=== PATIENT | female | born 1960 | race Caucasian/White ===

== ENCOUNTER 2020-01-17 13:02 | Emergency (ER) | payer MEDICAID ==
[~2020-01-17] VITALS: Ht 162.6 cm; Wt 84.1 kg
--- NOTE | 2020-01-17 14:16 | NUR ---
PT PRESENTS TO ED WITH C/O COUGH, BODY ACHES, LOW ENEGERY, LACK OF TASTE, GENERALIZED ABD PAIN X 6 DAYS, PT HAD COVID EXPOSURE 10 DAYS AGO. PT IS A&O, RESPS EVEN AND UNLABORED, DENIES SOB. PT ABLE TO SPEAK IN FULL SENTENCES WITHOUT DIFFICULTY. CALL LIGHT IN REACH, AWAITING PROVIDER AND ORDERS.
--- NOTE | 2020-01-17 15:05 | NUR ---
isidoro syed at bedside at this time.
--- NOTE | 2020-01-17 15:18 | NUR ---
REPORT GIVEN TO CARRIE MIRELES WHO IS ASSUMING CARE.
--- NOTE | 2020-01-17 15:20 | NUR ---
REPORT FROM CARRIE MULLER. PT SITTING UP IN [facility] NOTED. AWAITING XRAY
[2020-01-17 16:59] VITALS: BP 101/72
--- NOTE | 2020-01-17 17:02 | NUR ---
PT DENIES NEEDS. ASKING TO DRESS. PT OFF MONITORING AND DRESSING SELF. AWAITING RECHECK
--- NOTE | 2020-01-17 17:30 | NUR ---
DC EDUCATION PROVIDED, PT DEMONSTRATES UNDERSTANDING. PT AMBULATED STEADILY TO DC W RN.
== END 2020-01-17 17:44 | disposition home or self-care (01) ==
LOC: ED 15:25
DX: U07.1 COVID-19 (principal); B34.9 Viral infection, unspecified; R06.02 Shortness of breath; R10.9 Unspecified abdominal pain
CPT/HCPCS: 36415; 71045; 87635; 99284